=== PATIENT | female | born 1990 | race Caucasian/White ===

== ENCOUNTER 2017-02-15 14:04 | Outpatient (CLI) | payer BC | END 2017-02-15 14:05 | disposition home or self-care (01) | LOC: BICULT 14:04 | PROVIDERS: ATTEND Obstetrics & Gynecology | DX: N64.4 Mastodynia (principal) ==

== ENCOUNTER 2018-09-08 16:14 | Day surgery (SDC) | payer BC ==
[2018-09-08] MEDS ORDERED: hydrALAZINE 20 MG/ML VIAL SLOW IVP PRN (17:52)
--- NOTE | 2018-09-08 17:55 | PDOC.LDHP ---
Labor and Delivery H&P Chief complaint: loss of fluid (or sweat) HPI: Patient of Dr Ya Time: 1755 CC: possible LOF vs sweat HPI: 27 yo G1 at 38 weeks 3 days with "moist panties". No gush of fluid, no drippping of fluid, no VB, Good FM. She is on synthroid for hypothyroidism Review of Systems: complete ROS completedn ans as per HPI Current gestational age (weeks): 38 (3 days) Due date: 09/19/18 Dating criteria: last menstrual period Grav: 1 Current complications: none Abnormal US findings: No Past Medical History: Hypothyroid on meds Current medications: pre-huma vitamins, other (synthroid) Previous surgical history: other (polyp removal) Allergies/Adverse Reactions: Allergies Allergy/AdvReac Type Severity Reaction Status Date / Time No Known Drug Allergies Allergy Verified 09/08/18 16:54 - Physical Exam Vital signs reviewed and normal: yes (119/75 afebrile 86 16) General: NAD Heart: RRR Lungs: CTAB Abdomen: gravid Extremeties: no edema FHT: category 1 [place] contractions every: rare - Vaginal Exam cm dilated: 4 Effacement: 75% Station: 0 - Assessment Possible LOF at earlty term, but HX not very compatible with LOF. Exam was the same as yesterday in office. sent - Plan Plan: observation in L&D, other (no gross evidence of ROM Exam same as prior Amnisure sent)
[2018-09-08 18:08] LABS: Amnisure Internal Control QC ACCEPTABLE (ACCEPTABLE); Amnisure Test No Membranes Rupture (No Rupture)
--- NOTE | 2018-09-08 18:45 | PDOC.EVN ---
Event Note - Event Note Event Note: was negative I have seen and evaluated the patient I performed cough and valsalva tests and there is no leakage. Perineum is dry. Under pad all dry This was reviewed with her and her partner OK for outpatient care Vitals stable and NST reactive
== END 2018-09-08 18:50 | disposition home or self-care (01) ==
LOC: L&D/OP 16:14
PROVIDERS: ATTEND Obstetrics & Gynecology
DX: O99.89 Other specified diseases and conditions complicating pregnancy, childbirth and the puerperium (principal); N89.8 Other specified noninflammatory disorders of vagina; O99.283 Endocrine, nutritional and metabolic diseases complicating pregnancy, third trimester; E03.9 Hypothyroidism, unspecified; Z3A.38 38 weeks gestation of pregnancy; Z79.899 Other long term (current) drug therapy
CPT/HCPCS: 84112; 99283

== ENCOUNTER 2018-09-17 22:09 | Inpatient (IN) | payer BC ==
[~2018-09-17 22:09] MED LIST: Bupivacaine/Epinephrine 0.25% 30 ML VIAL ONE; Terbutaline Sulfate 1 MG/ML VIAL ONE
[2018-09-17 22:38] VITALS: BMI 32.1
[2018-09-17] MEDS ORDERED: Butorphanol Tartrate 1 MG/ML VIAL SLOW IVP PRN (23:11)
[2018-09-17] MEDS ORDERED: NS / Oxytocin 40 units/1000ml 1,000 ML IV PRN (23:11)
[2018-09-17] MEDS ORDERED: Meperidine HCl/PF 25 MG/ML VIAL IM/IV PRN (23:11)
[2018-09-17] MEDS ORDERED: Acetaminophen 500 MG TAB PO PRN (23:11)
[2018-09-17] MEDS ORDERED: Ondansetron PF 4 MG/2 ML Vial IVP PRN (23:11)
[2018-09-17] MEDS ORDERED: Lidocaine 1% (PF) 30 ML VIAL SC PRN (23:11)
[2018-09-17] MEDS ORDERED: Promethazine HCl 25 MG/ML VIAL IM PRN (23:11)
[2018-09-17] MEDS ORDERED: Ibuprofen 800 MG TAB PO PRN (23:11)
[2018-09-17] MEDS ORDERED: HYDROcodone/Acetaminophen 5/325 mg Tablet PO PRN ×2 (23:11)
[2018-09-17] MEDS ORDERED: Zolpidem Tartrate 5 MG TAB PO PRN (23:11)
[2018-09-17] MEDS ORDERED: Penicillin G Potassium 5 MILL.UNITS in Sodium Chloride 0.9% 100 ML IVPB SCH (23:30)
[2018-09-17 23:33] LABS: Hemoglobin 11.4 g/dL (12.0-16.0); Mean Corpuscular HGB CONC 35.4 g/dL (32.0-36.0); Mean Corpuscular Hemoglobin 32.2 pg (27.0-31.0); Mean Platelet Volume 7.5 fL (7.4-10.4); Platelet Count 174 thou/uL (130-400); RBC Distribution Width 12.1 % (11.5-14.5); Red Blood Cell (RBC) Count 3.55 mill/uL (4.20-5.40); White Blood Cell (WBC) Count 10.4 thou/uL (4.8-10.8)
[2018-09-17] MEDS: Lactated Ringer's 1,000 ML IV SCH (23:34)
[2018-09-17] MEDS ORDERED: NS w/ Oxytocin 10 units 500 ML IV SCH (23:45)
[2018-09-17] MEDS ORDERED: Lactated Ringer's 1,000 ML IV SCH (23:45)
[2018-09-18 00:12] LABS: HBSAg Index 0.25 S/CO (0-0.99); Hep B Surf Ag Non-Reactive S/CO (NonReactive); Syphilis Antibody Nonreactive (Nonreactive); Syphilis Antibody Index 0.07 S/CO (<1.00 Non-Reactive)
[2018-09-18] MEDS ORDERED: Fentanyl 4 mcg/Bup 0.1% Cadd 100 ML ONE (00:49)
[2018-09-18] MEDS ORDERED: Fentanyl 100 MCG/2 ML VIAL ONE ×2 (00:57→03:41)
[2018-09-18] MEDS ORDERED: Lidocaine 1.5%/Epinephrine 1:200,000 5 ML AMPUL IJ ONE ×2 (00:57→01:54)
[2018-09-18] MEDS ORDERED: diphenhydrAMINE 50 MG/ML VIAL IVP PRN (01:48)
[2018-09-18] MEDS ORDERED: Acetaminophen 325 MG TAB PO PRN (01:48)
[2018-09-18] MEDS ORDERED: Ondansetron PF 4 MG/2 ML Vial IVP PRN (01:48)
[2018-09-18] MEDS ORDERED: ePHEDrine/0.9% NaCl/PF SYRINGE 50 mg/10 ml SLOW IVP PRN (01:48)
[2018-09-18] MEDS ORDERED: Promethazine HCl 25 MG/ML VIAL IM PRN (01:48)
[2018-09-18] MEDS ORDERED: Naloxone HCl 0.4 mg/ml Vial IVP PRN ×2 (01:48)
[2018-09-18] MEDS ORDERED: Lactated Ringer's 500 ML IV PRN (01:48)
[2018-09-18] MEDS ORDERED: Communication Order-Pharmacy FS SCH (02:00)
[2018-09-18] MEDS ORDERED: Fentanyl 4 mcg/Bupivacaine 0.1% Cassette 100 ML EPIDURAL SCH (02:00)
[2018-09-18] MEDS: Penicillin G 2.5 MILL.units 2.5 MILL.UNITS in Premix Bag 1 BAG IVPB SCH ×2 (03:13→07:17)
--- NOTE | 2018-09-18 03:18 | PDOC.EVN ---
Event Note - Event Note Event Note: H&P printed and placed in chart. Epidural replaced, more comfortable now. 2nd dose of Pen G starting now. SVE /0/ vtx. Arom clear. Plan: Watch progress, augment if needed.
--- NOTE | 2018-09-18 05:51 | PDOC.EVN ---
Event Note - Event Note Event Note: Comfortable with epidural. SVE 8/C/O, vtx. FHTs stable. UCs q 2-3 min. A/P: Cont. to watch progress.
--- NOTE | 2018-09-18 10:06 | PDOC.OPDEL ---
OB Operative/Delivery Note Delivery Dr/Surgeon: Jacob Block Peter Hamilton ([id number]) Procedure/Post Delivery Dx: spontaneous vaginal delivery Anesthesia: epidural - Additional Findings/Plan Placenta delivered: spontaneous Repaired Obstetrical Laceration: none Estimated blood loss: 372 Compilations/Other Findings: Vaginal Delivery Operative Report Delivering Physician: Drs. Block (Attending), Jacob ([id number]) Assist: Danie Marcelo ([id number]) Procedure: Spontaneous Vaginal Delivery Anesthesia: epidural EBL: 375 ml Pre-op Diagnosis: 1. Term intrauterine in labor 2. A1GDM, controlled 3. GBS+ Post-op Diagnosis: 1. Term intrauterine , delivered 2. same as above 3. same as above s/p PCN x2 Indications: A 27 yo female G1 presents for CTX found to be in labor Delivery Note: This is 27yo F G1P@39.6wks who delivered a viable F on 09/18 at 0936. Following an uneventful antepartum course, a vigorous f was delivered over an intact perineum in the occiput anterior position. Anterior Shoulder and then remainder of the body delivered. No nuchal cord. The head was held down and mouth and nares were bulb suctioned. Cord clamped after delayed cord clamping and cut and cord blood collected. Placenta delivered intact in the Schultzpresentation with a 3 vessel cord noted. Fundal massage was performed and the fundus was firm. The cervix and vagina were inspected and found to be free of lacerations. Infant went to nursery in good condition for routine care. Apgars were 8/9 at 1 & 5 minutes, respectively. Patient tolerated delivery well and went to after routine recovery/ care. Post delivery plan: routine recovery Addendum - Attending - Attending Attestation Date/Time: 09/18/18 [id number] I personally evaluated the patient and discussed the management with Dr. James I agree with the History, Examination, Assessment and Plan documented above with any addition or exceptions noted below. I was present and supervised and participated in the delivery of Baby Eval immediate post delivery showed a couple small breaks in the hymen that were hemostatic, otherwise no lacerations. Baby delivered to mothers abdomen with out complication.
[2018-09-18] MEDS ORDERED: Adacel (T-DAP) 0.5 ML SYRINGE IM ONE (10:12)
[2018-09-18] MEDS ORDERED: Milk Of Magnesia 30 ML UDCUP PO PRN (10:12)
[2018-09-18] MEDS ORDERED: hydrALAZINE 20 MG/ML VIAL SLOW IVP PRN (10:12)
[2018-09-18] MEDS ORDERED: Bisacodyl 10 MG SUPP PR PRN (10:12)
[2018-09-18] MEDS ORDERED: NS / Oxytocin 40 units/1000ml 1,000 ML IV SCH (10:15)
[2018-09-18] MEDS: Lactated Ringer's 1,000 ML IV SCH (14:22)
[2018-09-18] MEDS: Ferrous Sulfate 325 MG TAB PO SCH (17:53)
[2018-09-18] MEDS: Docusate Calcium (SURFAK) 240 MG CAP PO SCH (20:18)
[2018-09-18] MEDS: Ibuprofen 800 MG TAB PO PRN (23:29)
[2018-09-19 05:44] LABS: Hemoglobin 9.1 g/dL (12.0-16.0)
[2018-09-19] MEDS: Ferrous Sulfate 325 MG TAB PO SCH ×2 (07:54→17:11)
[2018-09-19] MEDS: Ibuprofen 800 MG TAB PO PRN ×2 (07:55→17:12)
[2018-09-19] MEDS: Docusate Calcium (SURFAK) 240 MG CAP PO SCH ×2 (07:55→21:08)
--- NOTE | 2018-09-19 08:37 | PDOC.PP ---
Post Progress Note Post Day #: 1 Subjective: doing well, baby not latching well yet PO intake tolerated: yes Flatus: yes Ambulation: yes Vital Signs (12 hours) Temp Pulse Resp BP Pulse Ox 09/19/18 08:34 98.2 F 86 20 104/59 L 97 09/19/18 03:30 97.8 F 77 18 99/53 L 09/18/18 23:30 98.5 F 84 18 98/53 L Weight Weight 176 lb - Physical Examination General: NAD Respiratory: non-labored breathing Abdominal: no distention Fundus firm & at: below umb Neurological: no gross focal deficits Psychiatric: A&Ox3, normal affect Result Diagrams: 09/19/18 05:23 Additional Labs: Post Labs Blood Type O POSITIVE 09/18/18 01:33 Hep Bs Antigen Non-Reactive S/CO (NonReactive) 09/17/18 23:21 - Assessment/Plan PPD1 doing well, breast feeding positions reviewed this AM, will defer to workday financials consultant for direction/assistance.
[2018-09-20] MEDS: Ibuprofen 800 MG TAB PO PRN (01:25)
[2018-09-20 08:14] VITALS: BP 99/54; TEMP 98.1
[2018-09-20] MEDS: Ferrous Sulfate 325 MG TAB PO SCH (08:29)
[2018-09-20] MEDS: Docusate Calcium (SURFAK) 240 MG CAP PO SCH (08:29)
--- NOTE | 2018-09-20 08:32 | PDOC.PP ---
Post Progress Note Post Day #: 2 Subjective: doing well, working on latch still, pumping PO intake tolerated: yes Flatus: yes Ambulation: yes Vital Signs (12 hours) Temp Pulse Resp BP Pulse Ox 09/20/18 08:00 98.1 F 73 16 99/54 L 98 09/19/18 21:00 98.2 F 81 18 109/56 L 98 Weight Weight 176 lb - Physical Examination General: NAD Respiratory: non-labored breathing Abdominal: no distention Extremities: negative homans (B) Skin: no rash Neurological: no gross focal deficits Psychiatric: A&Ox3, normal affect Result Diagrams: 09/19/18 05:23 Additional Labs: Post Labs Blood Type O POSITIVE 09/18/18 01:33 Hep Bs Antigen Non-Reactive S/CO (NonReactive) 09/17/18 23:21 - Assessment/Plan Doing well, plan for DC today.
== END 2018-09-20 12:30 | disposition home or self-care (01) | DRG 807 ==
LOC: L&D/OP 22:09 → L&D 22:52 → 3SW 09-18 12:41
PROVIDERS: ADMIT Obstetrics & Gynecology; ATTEND Obstetrics & Gynecology
PROC: 10E0XZZ Delivery of Products of Conception, External Approach (ICD-10-PCS; principal; 2018-09-18)
DX: O24.420 Gestational diabetes mellitus in childbirth, diet controlled (principal); Z37.0 Single live birth; O99.824 Streptococcus B carrier state complicating childbirth; Z3A.39 39 weeks gestation of pregnancy
CPT/HCPCS: 36415; 51701; 51702; 85014; 85018; 86780; 86850; 86900; 86901; 87340; 99285; J2001; J2540; J3010; J3105; J3490